=== PATIENT | male | born 1995 | race Caucasian/White ===

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

== ENCOUNTER 2019-06-24 11:41 | Emergency (ER) | payer OTHER ==
--- NOTE | 2019-06-24 12:25 | PDOC ---
History of Present Illness - General Chief Complaint: Rash Stated Complaint: RASH Time Seen by Provider: 06/24/19 12:25 History Source: Patient - History of Present Illness Initial Comments: 06/24/19 12:43 23-year-old male with history of autism, Down syndrome, hypothyroidism, celiac disease, kidney failure stage III brought in from [facility] for evaluation of rash to abdomen. Patient was sent to rule out chickenpox. Denies fever/chills 06/24/19 16:12 Past History - Past Medical History Allergies/Adverse Reactions: Allergies Allergy/AdvReac Type Severity Reaction Status Date / Time No Known Allergies Allergy Verified 11/11/16 08:02 Home Medications: Ambulatory Orders Acetaminophen [Non-Aspirin Pain Relief] 650 mg PO PRN 12/29/14 Alprazolam [Alprazolam Xr] 0.5 mg PO HS 12/29/14 Benztropine Mesylate 1 mg PO TID 12/29/14 Ferrous Sulfate 325 mg PO TID 12/29/14 Gabapentin 300 mg PO TID 12/29/14 Guaifenesin [Mucinex -] 600 mg PO BID 12/29/14 Haloperidol [Haldol -] 10 mg PO TID 12/29/14 Lactulose 20 ml PO BID 12/29/14 Levothyroxine [Synthroid -] 50 mcg PO DAILY 12/29/14 Loperamide HCl [Loperamide] 2 mg PO TID 12/29/14 Loratadine 10 mg PO DAILY 12/29/14 Multivitamin [Poly-Vitamin] 1 each PO DAILY 12/29/14 Quetiapine Fumarate [Seroquel -] 50 mg PO BID 12/29/14 Quetiapine Fumarate [Seroquel] 400 mg PO BID 12/29/14 Sodium Chloride Inhalation [Normal Saline *For Inhalation*] 3 ml IH BID traZODone HCL [Desyrel -] 100 mg PO HS 12/29/14 Cefpodoxime Proxetil [Vantin -] 100 mg PO BID #14 tablet 01/30/15 Mineral Oil [Enema] 133 ml RC PRN 02/02/15 Ciclopirox Olamine [Ciclopirox] 1 gm TP BID #1 cream..g. 06/24/19 GI Disorders: Yes (CELIAC DISEASE.) Psychiatric Problems: Yes (SIB,AUTISM, DOWN SYNDROME, AGGRESSION) Thyroid Disease: Yes (HYPO.) - Immunization History Immunization Up to Date: Yes - Psycho Social/Smoking Cessation Hx Smoking History: Never smoked Have you smoked in the past 12 months: No Number of Cigarettes Smoked Daily: 0 Hx Alcohol Use: No Drug/Substance Use Hx: No Substance Use Type: None Review of Systems - Review of Systems Able to Perform ROS?: Yes Is the patient limited Mexican proficient: No Constitutional: No: Symptoms Reported, See HPI, Chills, Diaphoresis, Fever, Loss of Appetite, Malaise, Night Sweats, Weakness, Weight Stable, Unintentional Wgt. Loss, Unexplained wgt Loss, Other Integumentary: Yes: Rash *Physical Exam - Vital Signs Last Vital Signs Temp Pulse Resp BP Pulse Ox 91 H 20 96/58 L 97 06/24/19 12:12 06/24/19 12:12 06/24/19 12:12 06/24/19 12:12 - Physical Exam General Appearance: Yes: Appropriately Dressed, Other (Down's facies) Integumentary: positive: Rash (non vesicular rash. circular scaling patch with raised borders) Neurologic: positive: Fully Oriented, Alert ED Progress Note - Progress Note Progress Note: 06/24/19 13:00 A: tinea corporis P: cyclopirox derm follow up Medical Decision Making - Medical Decision Making 06/24/19 12:[address] Whaley. reports that roommate had shingles. would like Varicella PCR. will follow up on results. 06/24/19 13:00 Discharge - Discharge Information Problems reviewed: Yes Clinical Impression/Diagnosis: Tinea corporis Condition: Stable Disposition: HOME - Additional Discharge Information Prescriptions: Ciclopirox Olamine [Ciclopirox] 1 gm TP BID #1 cream..g. - Follow up/Referral - Patient Discharge Instructions Patient Printed Discharge Instructions: DI for Tinea Corporis Additional Instructions: Apply cream to the area twice daily. Moisturize well. If symptoms does not involve improve it is important the patient is follow-up with a nutritional health coach as soon as possible. Return to the ER for any worsening symptoms - Post Discharge Activity
[2019-06-24 12:26] VITALS: BP 96/58; PULSE 91; BMI 19.0
== END 2019-06-24 13:10 | disposition home or self-care (01) ==
LOC: JERFT 11:41 → JER 11:41 → JERFT 13:10
DX: B35.4 Tinea corporis (principal); N18.3 Chronic kidney disease, stage 3 (moderate); E03.9 Hypothyroidism, unspecified; F84.0 Autistic disorder; Q90.9 Down syndrome, unspecified; F91.1 Conduct disorder, childhood-onset type; K90.0 Celiac disease
CPT/HCPCS: 36415; 86787; 99283-25